=== PATIENT | male | born 1980 | race Two or more races ===

== ENCOUNTER 2024-08-23 14:29 | Emergency (ER) | payer MEDICAID, SELFPAY ==
[2024-08-23 14:30] VITALS: BMI 36.0
[2024-08-23 15:26] VITALS: BP 157/87; PULSE 96; RESP 18; TEMP 36.6; O2SAT 97
--- NOTE | 2024-08-23 15:34 | EDNOTE_ITS ---
ED Skin Abcess FB-RME/HPI General Chief complaint: Skin/Abscess/Foreign Body Stated complaint: POSS SPIDE BITE RIGHT ANKLE Time Seen by Provider: 08/23/24 14:37 Arrival date/time: 08/23/24 14:29 RME / HPI RME / HPI narrative: 44-year-old male patient was brought in by family for evaluation regarding right lateral ankle redness. Onset of symptoms for the last few days has patient probably got bitten by a spider. Patient noticed some redness and mild swelling. No necrosis of the skin noted. No fever no other complaints of the patient is ambulatory. Tetanus vaccination is less than 10 year-old Related Data Previous Rx's ?Medication ?Instructions ?Recorded Hydrocodone/Acetaminophen * (NORCO 1 - 2 tab PO Q4H AR N PAIN #15 tabs 05/22/ 5/325 *) sulfamethoxazole 800 1 tab PO Q12H #14 tabs 07/06 mg-trimethoprim 160 mg tablet (Bactrim DS) doxycycline hyclate 100 mg capsule 100 mg PO BID #14 c aps 08/23/24 ibuprofen 800 mg tablet 800 mg PO Q8H PRN pain #30 t abs 08/23/24 Allergies Allergy/AdvReac Type Severity Reaction Status Date / Time No Known Allergies Allergy Verified 08/23/24 14:32 Review of Systems Review of Systems Narrative Review of Systems: Review of system reviewed and within normal limits except mentioned in HPI ED Exam Narrative Physical exam: VITAL SIGNS: Reviewed. GENERAL APPEARANCE: Alert and interactive, follows commands, no acute distress, HEAD AND FACE: Non-traumatic. ENT: PERRL, pink conjunctivitis, eyelid no trauma, Mucous membrane moist. NECK: Supple, nontender, no nuchal rigidity. CHEST: No tenderness, no crepitus, no paradoxical movement, no retractions. LUNGS: Clear, well ventilated, symmetric, no rales, no wheezing, no ronchi, no stridor, good breath sounds bilaterally. HEART: Regular rate, regular rhythm, no murmur, no gallops. ABDOMEN: Soft, positive bowel sounds, nondistended, no guarding, nontender, no rebound, no masses, RECTAL: Deferred. GENITAL: Deferred. NEUROLOGICAL: Gross motor function intact sensory function intact, Appropriate for age. MUSCULOSKELETAL: low back nontender, full range of motion. EXTREMITIES: Right lateral ankle redness and mild swelling, nonfluctuant, full range of motion. SKIN: Color pink, dry, no rash, no lacerations, no abrasions, no contusions. LYMPHATICS: Deferred. Course Quality Measures none Vital Signs Vital signs: Vital Signs Temperature 98 F 08/23/24 15:26 Pulse Rate 96 08/23/24 15:26 Respiratory Rate 18 08/23/24 15:26 Blood Pressure 157/87 H 08/23/24 15:26 Pulse Oximetry (%) 97 08/23/24 15:26 Oxygen Delivery Method Room Air 08/23/24 15:26 Skin / Abscess / Foreign Body MDM Narrative MDM Narrative:: 44-year-old male patient was brought in by family for evaluation regarding right lateral ankle redness. Onset of symptoms for the last few days has patient probably got bitten by a spider. Patient noticed some redness and mild swell ing. No necrosis of the skin noted. No fever no other complaints of the patient is ambulatory. Tetanus vaccination is less than 10 year-old Imaging or workup is not needed this time. Patient was sent home on doxycycline. Patient data External records reviewed:: None Clinical information provided by:: patient Social determinants that could affect healthcare access:: none Patient has the following chronic illnesses:: None How is presenting disease/condition affected by chronic disease/condition?: no chronic disease Evaluation data The following diagnostics were reviewed and interpreted by me:: lab results and other (specify) (None) Lab and/or radiology exams considered but not ordered:: None Interpretation Summary: None Medications / Prescriptions Medications or Prescriptions considered but not ordered:: None Medication administrations:: None Consultations Consultation(s) initiated? (list below): No Diagnosis Skin/Abscess Differential Diagnosis: cellulitis, insect bites and impetigo Most likely diagnosis given after review of the tests above:: Insect bite, ankle cellulitis Admission Indicated Admission indicated?: not indicated Admission Request Was there a request for admission?: No Disposition Plan Disposition Plan: Discharge Discharge Attestation Discharge Attestation: The patient was given an opportunity to ask questions and understood the discharge instructions. Discharge instructions specifically effects, indications for sooner follow up or return to the emergency department, and the expected course of current diagnosis. Patient condition: Stable Discharge Plan Plan Patient Disposition: HOME (Self Care) Discharge Disposition comment: Stable Prescriptions/Referrals Prescriptions/Med Rec: New doxycycline hyclate 100 mg capsule 100 mg PO BID Qty: 14 0RF ibuprofen 800 mg tablet 800 mg PO Q8H PRN (Reason: pain) Qty: 30 0RF No Action Hydrocodone/Acetaminophen * (NORCO 5/325 *) 1 TAB tablet 1 - 2 tab PO Q4H PRN (Reason: PAIN) Qty: 15 0RF Rx Instructions: FOR PAIN sulfamethoxazole-trimethoprim [Bactrim DS] 800-160 mg tablet 1 tab PO Q12H Qty: 14 0RF Referrals: No Primary/Family,Physician [Primary Care Provider] - In 1 week Problem List Clinical Impression: Insect bites, Ankle cellulitis Patient/Caregiver Discharge Instructions Discharge Activity: activity as tolerated Education Materials: ED Cellulitis Additional Instructions: Thank you for the opportunity for serving you today. You are stable for discharged . You are advised to: Follow-up with your PCP in 1 to 2 days Return to ED for worsening of symptoms Increase oral fluids Take medication as prescribed Elevate leg as needed Print Language: Gambian Stand Alone Forms: Marcelle Award Info., Patient Portal Info Letter MAXINE/PHYLICIA Supervising Physician MAXINE/PHYLICIA Supervising Physician: MD Vinayak
== END 2024-08-23 15:40 | disposition home or self-care (01) ==
PROVIDERS: Emergency Provider Emergency Medicine
DX: S90.561A Insect bite (nonvenomous), right ankle, initial encounter (principal); L03.119 Cellulitis of unspecified part of limb; W57.XXXA Bitten or stung by nonvenomous insect and other nonvenomous arthropods, initial encounter
CPT/HCPCS: 99281